=== PATIENT | female | born 1990 | race Caucasian/White ===

== ENCOUNTER 2017-05-15 06:50 | Day surgery (SDC) | payer OTHER ==
[~2017-05-15] VITALS: Ht 172.7 cm; Wt 154.2 kg
[~2017-05-15 06:50] MED LIST: ALBUTEROL SULF8.5 GM INH; AMOXICILLIN500 MG PO; BACLOFEN10 MG PO; CLINDAMYCIN HC300 MG PO; DICLOFENAC SODI75 MG PO; IBUPROFEN200 MG PO; IBUPROFEN600 MG PO; IMITREX50 MG PO; MONO-LINYAH1 EACH PO; NORCO 5-325 TA1 EACH PO; OMEPRAZOLE20 MG PO; ORTHO-CYCLEN1 EACH PO; PAROXETINE HCL20 MG PO; PERCOCET 5-3251 EACH PO; PREDNISONE20 MG PO; PRENATAL 19 TA1 EAC1 PO; PROMETHAZINE HC25 M1 PO; PROPRANOLOL HCL20 MG PO; PROTONIX40 MG PO; TRAMADOL HCL50 MG PO; ZITHROMAX250 MG PO; ZOFRAN ODT8 MG SL
[2017-05-15] MEDS ORDERED: IBUPROFEN600 MG PO (10:53)
[2017-05-15] MEDS ORDERED: OXYCODON-ACETA1 EAC2 PO (10:54)
--- NOTE | 2017-05-15 11:07 | NUR ---
05/15/17 1107 Alicia Núñez 1025 PT ARRIVED IN [place] ON 10L VIA MASK. PT O2 SAT 85%, TRIAGE SPECIALIST AT BEDSIDE AROUSING PT. PT ENCOURAGED TO DEEP BREATH AND COUGH. PT DROWSY. 1030 PT O2 SAT 92% WITH DEMINISHED BREATH SOUNDS. PT COUGHING OFF AND ON. PT REPORTS PAIN 5/10, EDUCATION GIVEN ON PAIN MEDICAITON AND BREATHING. 1037 PT ABLE TO FOLLOW COMMANDS WITH DEEP BREATHING AND COUGHING. O2 SAT 99%. 1040 PT O2 SAT CONTINUES TO DECREASE WHEN PT IS NOT STIMULATED AND REMONDED TO DEEP BREATH AND COUGH. PT MORE AWAKE AND OPENING EYES OFF AND ON. 1047 O2 SAT 100%. O2 DECREASED TO 8L VIA MASK. 1050 O2 DECREASED TO 6L. PT ABLE TO MAINTAIN SAT ABOVE 92% FOR 10 MINUTES. 1056 MD AT [facility]. O2 REMOVED. 1100 PT AWAKE AND TALKING. RN CONTINUES TO REMIND PT TO DEEP BREATH AND COUGH. O2 SAT WILL DECREASE TO 90% AND THEN INCREASE AFTER COUGHING AND DEEP BREATHING. PT ON RA.
--- NOTE | 2017-05-15 11:32 | NUR ---
CRACKERS, SOUP AND ICED WATER GIVEN. PATIENT REPLACING FACIAL PIERCING UPON HER IMMEDIATE RETURN TO DEPT. CALL LIGHT W/IN REACH.
--- NOTE | 2017-05-15 12:38 | NUR ---
PT UP TO BR W/RN STANDBY. PT VOIDS 100 ML CONCENTRATED, DARK YELLOW URINE AND AMBULATES BACK TO BED. PT DRESSES SELF AND TOLERATES THAT MOVEMENT WELL.
--- NOTE | 2017-05-15 13:34 | NUR ---
LE 1255: DC INSTRUCTIONS GIVEN AND PT VERBALIZES UNDERSTANDING. PT TRANSFERS SELF TO WC AND TO PERSONAL VEHICLE AND TOLERATES THOSE TRANSFERS WELL.
--- NOTE | 2017-05-17 08:59 | OR ---
[facility] [address] [place], [place] [address] Signed DATE OF OPERATION: 05/15/2017 SURGEON: Kathi Leal MD PREOPERATIVE DIAGNOSES: 1. Inverted nipple and subareolar mass, presumed history of subareolar breast abscess. 2. Morbid obesity (340 pounds, BMI 53.3). POSTOPERATIVE DIAGNOSES: 1. Inverted nipple and subareolar mass, presumed history of subareolar breast abscess. 2. Morbid obesity (340 pounds, BMI 53.3). PROCEDURE: Excision of subareolar breast tissue with plastic closure. ANESTHESIA: General endotracheal, Mack Herzog AGRICULTURAL SCIENTIST and local with 10 mL of 0.25% Marcaine with epinephrine. INDICATION: This morbidly obese, BMI 53.3, white woman is a patient of Dr. Lowery. She has 2 children and daughter who is 2 and a son who is 6, and was said to have a right subareolar breast abscess. To my knowledge, she never had erythema or purulence and has had some clear discharge from the right breast over time. She has had no bloody drainage. She has had pain and fullness in the subareolar area. She was unable to breastfeed due to inability to latch related to inverted nipple. Both left and right sides do show inverted nipple however. An ultrasound was performed showing some fluid and a masslike lesion and she underwent image guided biopsy by Dr. Abdalla showing only fibrosis, but no sign of malignancy. She has no family history of breast cancer that she is aware of. She does smoke cigarettes, now is cutting down on that at this time. She was admitted at this time to undergo right subareolar breast mass and soft tissue excision for both diagnosis and treatment of her problem. She understands the risks of bleeding, infection, cosmetic deformity, inability to breastfeed in the future in that breast, and other unforeseen complications including possible need for additional treatment, should malignancy be found, and wishes to proceed. FINDINGS: The inverted nipple was quite obvious in no doubt related to dense scarring of breast tissue beneath the nipple. Wide excision was undertaken. The breast excision size was 9 cm in diameter and 6 cm in depth. The lesion once excised was bivalved and had dense Electronically Signed By: KATHI LEAL MD 05/17/17 0859 PATIENT NAME: FRANCESCA GIBBS OPERATIVE REPORT DATE OF : [birth year] REPORT #: [id number] PHYSICIAN: KATHI LEAL MD PCP: DANNY LOWERY MD REPORT IS CONFIDENTIAL AND NOT TO BE RELEASED WITHOUT AUTHORIZATION [facility] [address] [place], [place] [address] Signed scarring, but no fluid or anything to suggest active abscess. Final pathology is pending. Notably, the nipple was made to be in a more natural position without inversion by conclusion and breast parenchymal reapproximation allowed for excellent cosmesis. DESCRIPTION OF PROCEDURE: The patient was brought to the operating room, given a general endotracheal anesthetic. Preoperative antibiotic Ancef was given. Sequential compression device stockings were used and heparin subcutaneously administered. The right breast was prepared with a chlorhexidine solution and draped sterilely. The inferior margin of the areolar area was marked and an incision was made along the areolar margin. Dissection was carried through the dermis with electrocautery. Flaps were elevated including beneath the nipple itself or dense tissue was noted. The nipple proper was freed from the underlying mass and wide resection was undertaken primarily with electrocautery maintaining a clinically negative margin around the dense mass, which was a few centimeters below the areolar dermis itself. Wide excision was undertaken and ultimately excising the mass entirely with clinically negative margins. Photographs were taken throughout. The lesion was bivalved to see the dense mass in the center portion, which did show scarring and no evidence of fluid or abscess fluid at this time. Irrigation was undertaken in the wound. The defect was enough that a sunken areola would be expected. On that basis, parenchymal reapproximation was undertaken with interrupted 2-0 Vicryl suture. There were deep dermal layer similarly approximating the skin closed with running subcuticular 3-0 Vicryl. Steri-Strips were applied as was Mepilex, silver sponge dressing. Care was taken to free dermal scarring to allow for eversion of the nipple in a more natural way. A Mepilex silver sponge dressing was applied after Steri-Strips were applied and 10 mL of 0.25% Marcaine with epinephrine had been injected for postoperative analgesic effect. An OpSite was applied. The patient was ultimately extubated and transferred to recovery room in good condition having suffered no complication. Sponge, needle, and instrument counts reported as correct x3. MD NICOLASA Matos/ARSHL /[id number] Electronically Signed By: KATHI LEAL MD 05/17/17 0859 PATIENT NAME: FRANCESCA GIBBS OPERATIVE REPORT DATE OF : [birth year] REPORT #: [id number] PHYSICIAN: KATHI LEAL MD PCP: DANNY LOWERY MD REPORT IS CONFIDENTIAL AND NOT TO BE RELEASED WITHOUT AUTHORIZATION [facility] [address] [facility] [place], [place] [address] Signed cc: Dr. Lianne Lowery MD Copies: DANNY LOWERY MD ~ Electronically Signed By: KATHI LEAL MD 05/17/17 0859 PATIENT NAME: FRANCESCA GIBBS OPERATIVE REPORT DATE OF : [birth year] REPORT #: [id number] PHYSICIAN: KATHI LEAL MD PCP: DANNY LOWERY MD REPORT IS CONFIDENTIAL AND NOT TO BE RELEASED WITHOUT AUTHORIZATION
== END 2017-05-15 13:02 | disposition home or self-care (01) ==
LOC: DS 06:50
PROVIDERS: Surgery
PROC: 0HBT0ZZ Excision of Right Breast, Open Approach (ICD-10-PCS; principal; 2017-05-15 08:30)
DX: N61.1 Abscess of the breast and nipple (principal); N64.1 Fat necrosis of breast; N60.31 Fibrosclerosis of right breast; N64.59 Other signs and symptoms in breast; F17.210 Nicotine dependence, cigarettes, uncomplicated; E66.01 Morbid (severe) obesity due to excess calories; J45.909 Unspecified asthma, uncomplicated; Z88.5 Allergy status to narcotic agent; Z68.43 Body mass index [BMI] 50.0-59.9, adult
CPT/HCPCS: 00404; 88305; J0330; J0690; J1644; J1885; J2250; J2405; J2704; J2710; J2765; J3010; J7120

== ENCOUNTER 2018-06-04 12:57 | Emergency (ER) | payer OTHER ==
[~2018-06-04] VITALS: Ht 172.7 cm; Wt 158.8 kg
[~2018-06-04 12:57] MED LIST changes: +BACTRIM DS TAB1 EACH PO; +HYDROCODON-ACE1 EA10 PO; +MAPAP325 MG PO; +MOTRIN IB200 MG PO; +OXYCODON-ACETA1 EAC2 PO
[2018-06-04] MEDS ORDERED: KEFLEX500 MG PO (14:40)
== END 2018-06-04 15:26 | disposition home or self-care (01) ==
LOC: ED 12:57
DX: N61.1 Abscess of the breast and nipple (principal); G43.909 Migraine, unspecified, not intractable, without status migrainosus; F17.200 Nicotine dependence, unspecified, uncomplicated; Z88.5 Allergy status to narcotic agent; Z88.8 Allergy status to other drugs, medicaments and biological substances
CPT/HCPCS: 84702; 99283-25; 99406

== ENCOUNTER 2020-03-05 17:51 | Inpatient (IN) | payer OTHER ==
--- NOTE | ~2020-03-05 | OR ---
[facility] [address] [place], [place] [address] Draft DATE OF OPERATION: 03/05/2020 SURGEON: Kat Franz MD [facility] PHYSICIAN: Dr. Bajwa. PREOPERATIVE DIAGNOSES: 31 and 3/7th week , non-reassuring status, prior section x2, morbid obesity, positive coronavirus disease. POSTOPERATIVE DIAGNOSES: 31 and 3/7th week , non-reassuring status, prior section x2, morbid obesity, positive coronavirus disease, delivered. PROCEDURE: Repeat section with low segment transverse uterine incision. ANESTHESIA: General ET. ESTIMATED BLOOD LOSS: 250 mL. DRAINS: Browne. INDICATIONS AND FINDINGS: The patient is a 29-year-old female, 4, para 1-1-1-2, who was admitted at 31 and 3/7th weeks when she called to complain of decreased movement over the day. The patient was on Sunday with a positive test on Sunday. She has a mild cough and has had intermittent fevers, but no significant other symptoms. When she arrived initially, heart tones were in the 170s with poor variability and D-cells, consistent with possible late, so no contractions really were picked up. Biophysical was done, which was 2/8. Because of her status, it was not felt possible to send the patient and baby in the unit to be transferred for delivery at the hospital with a NICU. It was felt that she needed to be delivered more expeditiously. Therefore, she underwent here with the team en route. She was taken the operating room where she was delivered of a little boy via lower segment transverse uterine incision with Apgars are still pending and a weight of 3 pounds 15 ounces. [facility] PATIENT NAME: FRANCESCA GIBBS OPERATIVE REPORT DATE OF : [birth year] REPORT #: [id number] PHYSICIAN: KAT FRANZ MD PCP: ELLIOTT NOGUEIRA REPORT IS CONFIDENTIAL AND NOT TO BE RELEASED WITHOUT AUTHORIZATION [facility] [address] [place], [place] [address] Draft position. On entering the uterus, there was minimal bleeding. The placenta really had no bleeding at all associated with that. The uterus, tubes, and ovaries were otherwise normal. DESCRIPTION OF PROCEDURE: The patient was prepped and draped in the supine position. A Pfannenstiel skin incision was made and carried down through the fascia. The incision was extended laterally. The inferior and superior fascial flaps were then created. The muscles were bluntly divided and the peritoneum entered sharply and the incision extended superiorly and inferiorly. The Neymar retractor was then placed. The uterine incision was made at the upper aspect of the peritoneal reflection. The baby was delivered with above findings and handed off to the pediatric staff in attendance. The placenta was essentially delivered itself through the incision. There did not appear to really be much blood in the placenta. The fluid was clear at delivery, however. The edges of the incision were identified and the uterus was closed in 2 layers using 0 Monocryl. The first layer was a running locking stitch and second was a vertical imbricating stitch. An additional [id number] was required in the mid section for control of bleeding. The abdomen was then copiously irrigated and inspected and preparations made for closure. The retractor removed and the peritoneal edges identified. An ACell graft was laid over the lower segment to aid in healing. The peritoneum was then closed with a running suture of 3-0 Vicryl. The muscles came together nicely without any suturing. Bleeding points were controlled with cautery and a [id number]-[id number] was required on the vessel in the right rectus muscle. This was done using 0 Vicryl. Following this, the area was irrigated and hemostasis assured. ACell powder was sprinkled over the muscles to aid in healing. The fascia was then closed from each angle to the midline with a running suture of 0 Vicryl. The subcu tissue was irrigated and inspected and bleeding points controlled with cautery. ACell powder as well as Karel was placed in the subcu space to hopefully help avoid subcu hematoma. The deep space was closed with interrupted sutures of 3-0 Vicryl. The skin was closed with alla. All sponge and needle counts were correct. She tolerated the procedure well and was taken to the recovery room in good condition. Kat Franz MD PJW/MODL /[id number] PATIENT NAME: FRANCESCA GIBBS OPERATIVE REPORT DATE OF : [birth year] REPORT #: [id number] PHYSICIAN: KAT FRANZ MD PCP: ELLIOTT NOGUEIRA REPORT IS CONFIDENTIAL AND NOT TO BE RELEASED WITHOUT AUTHORIZATION [address] [address] Draft Copies: ~ PATIENT NAME: FRANCESCA GIBBS OPERATIVE REPORT DATE OF : [birth year] REPORT #: [id number] PHYSICIAN: KAT FRANZ MD PCP: ELLIOTT NOGUEIRA REPORT IS CONFIDENTIAL AND NOT TO BE RELEASED WITHOUT AUTHORIZATION
[~2020-03-05 17:51] MED LIST changes: +KEFLEX500 MG PO
--- NOTE | 2020-03-06 00:51 | NUR ---
03/06/20 Candi1 Karen Up 2155 INTO [facility] RM 101, PATIENT APPEARS TO BE RESTLESS AND AGITATED, CRYING. PATIENT SITTING UP IN BED. HERMILO GARZA AT BEDSIDE ENCOURAGING PATIENT TO DEEP BREATHS. SIMPLE MASK ON AND PATIENT RECIEVING 6L, PATIENT ABLE TO TAKE DEEP BREATHS. DRESSING TO SITE C/D/I. HERMILO GARZA ADMINISTERED PAIN MEDICAITON 50 BELLO OF FENTANYL IV AND 0.5 MG DILAUDID IV. UNKOWN WHERE FUNDAL IS LOCATED, MASSAGED DEEP ALL AROUND IN AREA, UNABLE TO LOCATE. SMALL AMOUNT OF DRAINAGE WITH MASSAGE. 2204 XRAY INTO ROOM TO TAKE PORTABLE CHEST XRAY. PATIENT CONTINUES TO APPEAR AGITATED, CRYING. FUNDAL CHECK NOT DONE AT THIS TIME SECONDARY TO IMAGING. 2209 DEEP FUNDAL CHECK AND MASSAGE TO ABDOMEN. CONTINUE TO BE UNABLE TO LOCATE FUNUS SECONDARY TO OBESITY. GILSON UNABLE TO LOCATE FUNDUS, CONTINUED TO MASSAGE ABDOMEN. DRESSING C/D/I TO INSCISION. SAMLL AMOUNT OF DRAINAGE ON PRIYANK PAD. IV INFUSING WELL. SECOND BAG OF PIT DONE, BAG OF LR HANGING AND INFUSING WELL TO 20 G IV TO RIGHT UPPER BRACHIAL.
--- NOTE | 2020-03-06 03:44 | PR ---
[facility] [address] [facility] [place], [place] [address] Signed PP Progress Notes Datetime Report Generated by MELIDA: 03/06/2020 03:43 SUBJECTIVE: [id number] Pain Comments: Painful with intermittent cramping Nausea/Vomiting: Denies Vital Signs: [id number] Vital Signs: Reviewed; Within Normal Limits Cardiovascular: Not Done Respiratory: Not Done Abdomen/Uterus: Normal Lochia: Abnormal Vulva/Perineum: Normal Breasts: Not Done CVA Tenderness: Not Done Extremities: Not Done Incision: Normal Progress: Not Applicable Exam Comments: Fundus is firm @ U-2. Vag exam done and cervix is closed and cavity could not be evaluated H/H 11.2/32.7, plat 70k H/H 14.1/41.5, plat 67k before surgery PT/PTT normal Fibrinogen 148 Tot blood loss including surgery = 878 cc IMPRESSION/PLAN/PROCEDURES: [id number] Other Impression: Continued bleeding Other Plans: see below Progress Notes: She has been receiving IV pit and has also received po Cytotec 800 mcg (approx 0030) as well as Methergine 0.2 mg IM (0230). The uterus is firm but she will develop increased cramping and then pass some small clots with blood. I suspect there is a clot within the uterus which is keeping it from ceferino sufficiently to allow her blood loss to decrease. A D_C may allow the uterus to be fully evacuated and I think this will be needed if her bleeding does not decrease over this next hr. Her fibrinogen and platelets are low though the platelet count is stable and her other coag times are normal so far. She is not having bleeding from other injection sites and I do not think she is in DIC but this will be a risk with continued bleeding. *Electronically Signed* 03/06/20342 KAT FRANZ MD PATIENT NAME: MERCYYazanFRANCESCAMARTÍNEZ JULINA PROGRESS NOTE DATE OF : 90 PHYSICIAN: KAT FRANZ MD RPT #: [id number] REPORT IS CONFIDENTIAL AND NOT TO BE RELEASED WITHOUT AUTHORIZATION [facility] [address] [place] [address] Signed Will watch over this next hr and if necessary will proceed with D_C with transfusion of PRBCs, FFP, and cryo. Her UO is adequate but still very concentrated. Will give fluid bolus now. Signing Physician: Kat Franz MD Copies: ~ *Electronically Signed* 03/06/20342 KAT FRANZ MD PATIENT NAME: FRANCESCA GIBBS PROGRESS NOTE DATE OF : 90 PHYSICIAN: KAT FRANZ MD RPT #: [id number] REPORT IS CONFIDENTIAL AND NOT TO BE RELEASED WITHOUT AUTHORIZATION
--- NOTE | 2020-03-06 09:03 | PR ---
[facility] [address] [facility] [place] [address] Signed PP Progress Notes Datetime Report Generated by MLEIDA: 03/06/2020 09:03 SUBJECTIVE: [id number] Pain: Within Normal Limits Pain Comments: Painful with intermittent cramping Nausea/Vomiting: Denies Vital Signs: [id number] Vital Signs: Reviewed; Within Normal Limits Notable Details: Poor UO Cardiovascular: Normal Respiratory: Normal Abdomen/Uterus: Abnormal Lochia: Normal Vulva/Perineum: Not Done Breasts: Not Done CVA Tenderness: Not Done Extremities: Normal Incision: Normal Progress: Not Applicable Exam Comments: Abdomen with active BS. Fundus firm, tender @ U-1. Lochia steadily decreased since 0500 IMPRESSION/PLAN/PROCEDURES: [id number] Impression: Normal Progression Other Impression: Poor UO, stable blood loss, hypokalemia Other Plans: Fluid bolus, add K+, ambulate Progress Notes: Bleeding much improved. There is no evidence of DIC or continued bleeding. Her labs are stable. She looks good but UO is quite low. There is no evidence of edema so I suspect she is still fluid short. Will increase her IV fluids and begin ambulation. Hypokalemia--will supplement in IV fluids. Will repeat labs this afternoon. Will increase ambulation and allow regular diet as she is very hungry. Signing Physician: Kat Franz MD Copies: *Electronically Signed* 03/06/20 0903 KAT FRANZ MD PATIENT NAME: FRANCESCA GIBBS PROGRESS NOTE DATE OF : 90 PHYSICIAN: KAT FRANZ MD RPT #: [id number] REPORT IS CONFIDENTIAL AND NOT TO BE RELEASED WITHOUT AUTHORIZATION [address] [address] Signed ~ *Electronically Signed* 03/06/20 0903 KAT FRANZ MD PATIENT NAME: FRANCESCA GIBBS PROGRESS NOTE DATE OF : 90 PHYSICIAN: KAT FRANZ MD RPT #: [id number] REPORT IS CONFIDENTIAL AND NOT TO BE RELEASED WITHOUT AUTHORIZATION
--- NOTE | 2020-03-07 09:23 | PR ---
[facility] [address] [facility] [place] [place] [address] Signed PP Progress Notes Datetime Report Generated by MELIDA: 03/07/2020 09:23 SUBJECTIVE: [id number] Pain: Within Normal Limits Pain Comments: Itching resolved with Benadryl Nausea/Vomiting: Denies Nausea/Vomiting Comments: UO good Flatus: No Vital Signs: [id number] Vital Signs: Reviewed Notable Details: febrile last pm EXAM: Ongoing Cardiovascular: Normal Respiratory: Normal Abdomen/Uterus: Normal Lochia: Normal Vulva/Perineum: Normal Breasts: Not Done CVA Tenderness: Not Done Extremities: Normal Incision: Abnormal Progress: Not Applicable Exam Comments: Abdomen with active BS. Fundus firm, at U-4. Incision intact but with quite a bit of bruising superiorly. H/H 9.6/27.8, WBC 7.7, plat 97k Na 137, K 3.3 IMPRESSION/PLAN/PROCEDURES: [id number] Impression: Normal Progression Other Impression: COVID 19, oliguria resolved, hypokalemia Other Plans: Increase ambulation Progress Notes: Overall much improved. Oliguria--Her UO is doing well and I suspect she was significantly more dehydrated than suspected. Thrombocytopenia--improving. Hypokalemia--continues. Will begin oral supplementation. COVID 19--suspect cause of last night's increased temp as no other source identified. Anemia--tolerating ambulation well. Itching--suspect related to oxycodone. Will switch to Dilaudid. I think it likely she will be able to be discharged home tomorrow if continues to do *Electronically Signed* 03/07/20922 KAT FRANZ MD PATIENT NAME: FRANCESCA GIBBS PROGRESS NOTE DATE OF : 90 PHYSICIAN: KAT FRANZ MD RPT #: [id number] REPORT IS CONFIDENTIAL AND NOT TO BE RELEASED WITHOUT AUTHORIZATION [address] [address] Signed well. Signing Physician: Kat Franz MD Copies: ~ *Electronically Signed* 03/07/20922 KAT FRANZ MD PATIENT NAME: FRANCESCA GIBBS PROGRESS NOTE DATE OF : 90 PHYSICIAN: KAT FRANZ MD RPT #: [id number] REPORT IS CONFIDENTIAL AND NOT TO BE RELEASED WITHOUT AUTHORIZATION
== END 2020-03-07 23:40 | disposition home or self-care (01) | DRG 786 ==
LOC: FBCO 17:51 → FBC 19:26
PROVIDERS: ADMIT Obstetrics & Gynecology; ATTEND Obstetrics & Gynecology
PROC: 10D00Z1 Extraction of Products of Conception, Low, Open Approach (ICD-10-PCS; principal; 2020-03-05 20:40)
DX: O34.211 Maternal care for low transverse scar from previous cesarean delivery (principal); U07.1 COVID-19; O98.52 Other viral diseases complicating childbirth; O72.1 Other immediate postpartum hemorrhage; N85.8 Other specified noninflammatory disorders of uterus; Z3A.31 31 weeks gestation of pregnancy; Z37.0 Single live birth; O76 Abnormality in fetal heart rate and rhythm complicating labor and delivery; O99.214 Obesity complicating childbirth; E66.01 Morbid (severe) obesity due to excess calories; O32.2XX0 Maternal care for transverse and oblique lie, not applicable or unspecified; O99.334 Smoking (tobacco) complicating childbirth; F17.210 Nicotine dependence, cigarettes, uncomplicated; O90.81 Anemia of the puerperium; D64.9 Anemia, unspecified; O99.285 Endocrine, nutritional and metabolic diseases complicating the puerperium; E87.6 Hypokalemia; E86.0 Dehydration; O99.73 Diseases of the skin and subcutaneous tissue complicating the puerperium; L29.9 Pruritus, unspecified; T40.2X5A Adverse effect of other opioids, initial encounter; O72.3 Postpartum coagulation defects; D69.6 Thrombocytopenia, unspecified; Y92.239 Unspecified place in hospital as the place of occurrence of the external cause; Z88.5 Allergy status to narcotic agent; Z88.8 Allergy status to other drugs, medicaments and biological substances
CPT/HCPCS: 01961; 71045; 76818; 80048; 80053; 82803; 83605; 83735; 85025; 85384; 85610; 85730; 86850; 86900; 86901; 86920; A9270; J0171; J0690; J1170; J1650; J1885; J2001; J2210; J2250; J2405; J2590; J2704; J3010; J3480; J7040; J7120; J7121

== ENCOUNTER 2020-04-28 16:07 | Emergency (ER) | payer OTHER ==
[~2020-04-28] VITALS: Ht 170.2 cm; Wt 149.7 kg
[2020-04-28] MEDS ORDERED: IRON325 M1 PO (17:42)
== END 2020-04-28 22:46 | disposition home or self-care (01) ==
LOC: ED 16:07
DX: N61.1 Abscess of the breast and nipple (principal); G43.909 Migraine, unspecified, not intractable, without status migrainosus; E66.9 Obesity, unspecified; F17.200 Nicotine dependence, unspecified, uncomplicated; Z88.8 Allergy status to other drugs, medicaments and biological substances; Z88.5 Allergy status to narcotic agent; Z79.899 Other long term (current) drug therapy
CPT/HCPCS: 76642; 85025; 96365; 99283-25

== ENCOUNTER 2020-07-07 09:11 | Emergency (ER) | payer OTHER ==
[~2020-07-07] VITALS: Ht 170.2 cm; Wt 149.7 kg
[~2020-07-07 09:11] MED LIST changes: +ASHLYNA 0.15-01 EACH PO; +IBUPROFEN800 MG PO; +IRON325 M1 PO
[2020-07-07] MEDS ORDERED: HAIR, SKIN AND1 EAC2 PO (09:47)
[2020-07-07] MEDS ORDERED: HYDROCODON-ACE1 EA10 PO (13:14)
[2020-07-07] MEDS ORDERED: ZOFRAN4 MG PO (13:14)
[2020-07-07] MEDS ORDERED: CEPHALEXIN500 M1 PO (13:14)
== END 2020-07-07 13:23 | disposition home or self-care (01) ==
LOC: ED 09:11
DX: N61.1 Abscess of the breast and nipple (principal); E66.9 Obesity, unspecified; G43.909 Migraine, unspecified, not intractable, without status migrainosus; F17.200 Nicotine dependence, unspecified, uncomplicated; Z20.822 Contact with and (suspected) exposure to COVID-19; Z88.5 Allergy status to narcotic agent; Z88.8 Allergy status to other drugs, medicaments and biological substances; Z79.899 Other long term (current) drug therapy
CPT/HCPCS: 76642; 80053; 83605; 85025; 87040; 96374; 99283-25; C9803; J0690; J7030; U0003

== ENCOUNTER 2020-07-09 09:09 | Day surgery (SDC) | payer OTHER ==
[~2020-07-09] VITALS: Ht 170.2 cm; Wt 153.6 kg
[~2020-07-09 09:09] MED LIST changes: +CEPHALEXIN500 M1 PO; +HAIR, SKIN AND1 EAC2 PO; +ZOFRAN4 MG PO
--- NOTE | 2020-07-09 13:05 | NUR ---
07/09/20 1305 Yamilet Chris 1301 PATIENT ARRIVES TO PACU UNRESPONSIVE TO PAIN. ORAL AIRWAY IN PLACE. RESP DECREASED @7, SPECIAL SKILLS OFFICER AWARE. UNLABORED, MASK AT 10 LITERS.
--- NOTE | 2020-07-09 13:53 | NUR ---
PATIENT BACK TO ROOOM, ALERT AND ORIENTED. DRESSING TO RIGHT BREAST C/D/I. PATIENT ON PHONE TALKING. PROVIDED WATER AND SNACKS. NO OTHER NEEDS AT THIS TIME.
--- NOTE | 2020-07-09 15:28 | NUR ---
PATIENT AMBULATED TO FRONT ENTRANCE WITH STAFF, STEADY ON FEET. VERBALIZES UNDERSTANDING OF DISCHARGE TEACHING AND DENIES PAIN OR NAUSEA.
--- NOTE | 2020-07-11 08:14 | OR ---
[facility] [address], [place] [address] Signed DATE OF OPERATION: 07/09/2020 SURGEON: Jj Little MD PREOPERATIVE DIAGNOSIS: Recurrent right breast abscess. POSTOPERATIVE DIAGNOSIS: Recurrent right breast abscess. PROCEDURES: 1. Incision and drainage of right breast abscess. 2. Deep wound cultures. ESTIMATED BLOOD LOSS: None. INDICATIONS: Wilma is a 30-year-old female with a body mass index of 52. She had trouble now with right subareolar recurring breast abscess and infection. She went to Dr. Khan and had it incised and drained and then had a 2nd surgery and quite a bit of the tissue removed to help with that infection. Unfortunately, it keeps recurring. It has been cultured before grew out routine Staph aureus. It has responded nicely to Keflex in the past. She went back to the ER once again after I incised and drained it and we packed it with full strength Dakin's solution. However, I am not sure it was packed as well as long as it should have been. In the emergency room, she clearly had erythema, induration and pain and so she was once again started on the Keflex. I asked to see her in my office the very next morning. In the morning after that, we brought her down here to the operating room, incised and drained the breast. She told me early this morning it broke through the skin at the incision site and relieved the pressure. She has also started the Keflex. In the office, I met with Wilma once again. We examined that area with the help of our medical front desk coordinator. I explained to Wilma I think once again, we are going to open up the I and D site and clean that out and examine that area thoroughly. We hate to cut when it is acutely infected. Once again, we are going to use full-strength Dakin solution for a week to see if we cannot sterilize the wound and we will use mupirocin ointment on the skin along with the Keflex and see if we can get this to heal in secondarily. We may need to keep her on antibiotics alf and we are going to consult our regional Infectious Disease specialist to see if he thinks that would help. In the meantime, she presents today for the surgery. She is very aware of this surgery having gone through it now three times previously. She understands there Electronically Signed By: JJ LITTLE MD 07/11/20 0814 PATIENT NAME: WILMA WEST OPERATIVE REPORT DATE OF : [birth year] REPORT #: [id number] PHYSICIAN: JJ LITTLE MD PCP: ANGELA GREEN MD REPORT IS CONFIDENTIAL AND NOT TO BE RELEASED WITHOUT AUTHORIZATION [address] [address] Signed is risk including, but not limited to bleeding, infection, scarring, change in contour of the skin as well as possible need for additional surgeries and/or treatments. She had expressed understanding and wished to proceed. DESCRIPTION OF PROCEDURE: I met with Wilma in our preop area along with our nurse. We all agreed on the right breast. We marked that appropriately. After this, Wilma was taken to the operating room and placed in the supine position under general LMA anesthesia. She was already on Keflex by mouth and we added IV clindamycin. She was given preoperative subcutaneous heparin and SCDs were utilized. She was prepped and draped in the usual sterile fashion. We simply opened up the small circumareolar incision from about the 3 to 5 o'clock position on the right breast. We took our deep wound cultures. The wound was irrigated and suctioned out until clear. We examined the wound and it really is only about a cm or so wide and about 3 cm deep. It does turn head toward the sternal about a cm or so. I really think this should heal in secondarily. I think she is going to need some prolonged antibiotics and the Dakin's solution along with some mupirocin ointment for the skin. Once we debrided all the loose tissue and examined the area, we injected local anesthetic. We then packed the wound with Dakin's solution and covered it with dry gauze and tape. After this, Wilma was awakened from her anesthesia, extubated in the OR, and taken to recovery room in stable condition. Jj Little MD ALB/MODL /[id number] cc: DO Angela Lu MD Andrew L Bower, MD Copies: RICK JONES DO Electronically Signed By: JJ LITTLE MD 07/11/20 0814 PATIENT NAME: WILMA WEST OPERATIVE REPORT DATE OF : [birth year] REPORT #: [id number] PHYSICIAN: JJ LITTLE MD PCP: ANGELA GREEN MD REPORT IS CONFIDENTIAL AND NOT TO BE RELEASED WITHOUT AUTHORIZATION [facility] [address] [place], [place] [address] Signed JJ LITTLE MD ~ Electronically Signed By: JJ LITTLE MD 07/11/20813 PATIENT NAME: WILMA WEST OPERATIVE REPORT DATE OF : [birth year] REPORT #: [id number] PHYSICIAN: JJ LITTLE MD PCP: ANGELA GREEN MD REPORT IS CONFIDENTIAL AND NOT TO BE RELEASED WITHOUT AUTHORIZATION
== END 2020-07-09 15:10 | disposition home or self-care (01) ==
LOC: OPS 09:09 → DS 09:12 → OPS 12:15
PROVIDERS: ATTEND Colon & Rectal Surgery
PROC: 0H9T0ZZ Drainage of Right Breast, Open Approach (ICD-10-PCS; principal; 2020-07-09 12:15)
DX: N61.1 Abscess of the breast and nipple (principal)
CPT/HCPCS: 00404; 84703; 87070; 87075; 87205; J1100; J1644; J1885; J2001; J2250; J2405; J2704; J3010; J3490; J7121

== ENCOUNTER 2022-01-23 15:46 | Inpatient (IN) | payer OTHER ==
[~2022-01-23] VITALS: Ht 172.7 cm; Wt 175.1 kg
--- NOTE | ~2022-01-23 | OR ---
[facility] [address] [place], [place] [address] Draft DATE OF OPERATION: 01/23/2022 SURGEON: Kat Franz MD SURGEON CHIEF: Marika Jama DO. PREOPERATIVE DIAGNOSES: 37+ week , premature rupture of membranes, previous section x3, undesired fertility, breech presentation, morbid obesity, gestational diabetes. POSTOPERATIVE DIAGNOSES: 37+ week , premature rupture of membranes, previous section x3, undesired fertility, breech presentation, morbid obesity, gestational diabetes, delivered. PROCEDURES: Repeat section with low segment transverse uterine incision with right salpingectomy and left partial salpingectomy. ANESTHESIA: Spinal with IV sedation. ESTIMATED BLOOD LOSS: 600 mL. DRAINS: Browne catheter. INDICATIONS AND FINDINGS: The patient is a 31-year-old female, 5, para 1-2-1-2 who was admitted at 37 and 2/7th weeks and after spontaneous rupture of membranes at home. Her has been complicated by multiple issues including prior , previous section x3, morbid obesity, and gestational diabetes. At the time of surgery, she was delivered of a little girl via lower segment transverse uterine incision from the rosemary breech position with Apgars of 8 and 9 and weight of 7 pounds 15 ounces. The uterus had some ballooning at the right cornual area. The uterus otherwise appeared normal as did the placenta. She had some filmy adhesions bilaterally around the tubes and ovaries consistent with prior infection. The ovaries and tubes otherwise were normal. She had multiple significant omental adhesions as well and these did require division. PATIENT NAME: FRANCESCA WEST OPERATIVE REPORT DATE OF : [birth year] REPORT #: [id number] PHYSICIAN: KAT FRANZ MD PCP: NURIS GREEN MD REPORT IS CONFIDENTIAL AND NOT TO BE RELEASED WITHOUT AUTHORIZATION [facility] [address] [place], [place] [address] Draft PROCEDURE IN DETAIL: The patient was prepped and draped in the supine position. Pannus elevators were used because of her morbid obesity. The vision was made over the prior scar and the scar excised sharply. The incision was carried down to the fascia. The fascial incision was extended laterally. The inferior and superior flaps were then created. The peritoneum was opened sharply at the superior aspect and careful dissection was done to separate the muscles and to protect the bladder. Following this, the peritoneum was more with blunt force. The Neymar retractor was then placed. The uterine incision was made near the lower aspect and extended bluntly. The baby was delivered with the above findings and handed off to the pediatric staff in attendance. The cord blood was obtained. The placenta was removed manually. The uterus was explored with a lap tape assuring no remaining fragments. As noted before, there was some thinning of the uterus at the upper right aspect. The uterine incision was identified and was closed in 2 layers using 0 Monocryl. The first layer was a running locking stitch and the second was a vertical imbricating stitch. Good hemostasis was noted. Pressure was applied to the incision area and the tubal ligation was begun. The patient's right tube was grasped with Ollie clamps and clear areas in the mesosalpinx were sharply dissected and the tube serially excised with free ties of 2-0 chromic. The tube was removed in pieces and the fimbria was also removed in the same manner. The filmy adhesions were also divided with the cautery. Following this, attention was directed to the patient's left tube. The filmy adhesions were divided sharply. The tube was grasped with Ollie clamps. The initial portion of the tube did have some free area in the mesosalpinx and this allowed for division and removal of the half of the tube from the cornu to the mid section. However, the fimbriated end was very, very close to the large vessels in the broad ligament and it was felt prudent to not try to remove this area because of the potential for significant bleeding. Thus only a partial salpingectomy was done on the patient's left. Good hemostasis was noted however. Following this, the uterus was replaced back into the abdomen. The incision was reinspected and good hemostasis was again noted. The abdomen was irrigated and again good hemostasis was noted. The retractor was removed. The peritoneum was identified, but at this point, it was noted that there was significant adhesions superiorly and on the patient's left side, which would interfere with closure. Because of this, the omental adhesions were divided with free ties of 0 chromic. The uppermost aspect however was not completely as it was felt that the peritoneum could be closed above this and the adhesions were quite extensive. The peritoneum was then closed with a running suture of 3-0 Vicryl. The muscles essentially were reapproximated at this point as they had been pretty densely scarred and no attempt was made to reapproximate these further. The abdomen was irrigated and bleeding points were controlled with cautery. The fascia was then closed from each angle to the midline with a running suture of 0 PDS. PDS was chosen because of her morbid obesity. The subcu space was irrigated and bleeding points were controlled with cautery. The deep space was closed with interrupted sutures of 3-0 PATIENT NAME: FRANCESCA WEST OPERATIVE REPORT DATE OF : [birth year] REPORT #: [id number] PHYSICIAN: KAT FRANZ MD PCP: NURIS GREEN MD REPORT IS CONFIDENTIAL AND NOT TO BE RELEASED WITHOUT AUTHORIZATION [address], [place] [address] Draft Vicryl. The skin was closed with alla. All sponge and needle counts were correct. She tolerated the procedure well and was taken to the recovery room in good condition. Kat Franz MD PJW/ARSHL /[id number] cc: Marika Jama DO Copies: MARIKA JAMA DO ~ PATIENT NAME: FRANCESCA WEST OPERATIVE REPORT DATE OF : [birth year] REPORT #: [id number] PHYSICIAN: KAT FRANZ MD PCP: NURIS GREEN MD REPORT IS CONFIDENTIAL AND NOT TO BE RELEASED WITHOUT AUTHORIZATION
--- NOTE | 2022-01-23 17:00 | NUR ---
COVID SWAB COLLECTED SENT TO THE LAB
--- NOTE | 2022-01-23 20:42 | NUR ---
[facility]23[facility]222041 [facility] 1948 [facility] IN PACU WIDE AWAKE C/O ABOUT BP CUFF TO TIGHT. REMINDED PT BP NEED TAKEN EVERY 5 MINUTES WHILE IN PACU. PT EXPRESSED UNDERSTANDING. 1954 C/O ABD PAIN ONLY DURING FUNDAL MASSAGE. FBC RN IN ROOM WITH BABY. AUTOMOTIVE MACHINIST AT BEDSIDE TALKING TO PARENTS ABOUT BABY NEEDING AN IV AND GOING TO NURSERY FOR AWHILE. MOM HELD BABY FOR 1 MINUTE, THEN FBC RN AND BABY HEADED TO NURSERY. 2004 C/O FEELING HUNGRY. ICE CHIPS GIVEN. PT ON PHONE ORDERING SERBIAN TAKE OUT. REMINDED PT SHE CAN'T EAT RIGHT AWAY. 2009 AND PT'S MOTHER LEFT TO GO DUST BOX WORKER TAKE OUT. 2019 REPORT GIVEN TO FBC RN'S. BED PLUGGED IN AND MOM GIVEN UPDATE ON BABY.
--- NOTE | 2022-01-24 07:48 | PR ---
[facility] [address] [place], [place] [address] Signed PP Progress Notes Datetime Report Generated by CPN: 01/24/2022 07:48 SUBJECTIVE: [id number] Pain: Within Normal Limits Nausea/Vomiting: Denies Flatus: No Vital Signs: [id number] Vital Signs: Reviewed Notable Details: all normal except UO borderline EXAM: Ongoing Cardiovascular: Normal Respiratory: Normal Abdomen/Uterus: Abnormal Lochia: Normal Vulva/Perineum: Not Done Breasts: Not Done CVA Tenderness: Not Done Extremities: Normal Incision: Abnormal Progress: Abnormal Exam Comments: Abdomen with active BS. Fundus firm, sl tender @ U-1. Incision with some oozing on the dressing H/H 12.3/37, WBC 20.7, plat 289k IMPRESSION/PLAN/PROCEDURES: [id number] Impression: Normal Progression Other Impression: leukocytosis Other Plans: ambulate, shower Procedures: None Progress Notes: Overall doing well though UO sl decreased which I suspect is related to her Toradol. Her H/H are good though she has significant leukocytosis. This may be related to her surgery but will repeat to assure this continues a downward trend. Signing Physician: Kat Franz MD Copies: ~ *Electronically Signed* 01/24/22 0748 KAT FRANZ MD PATIENT NAME: FRANCESCA WEST PROGRESS NOTE DATE OF : [birth year] PHYSICIAN: KAT FRANZ MD RPT #: [id number] REPORT IS CONFIDENTIAL AND NOT TO BE RELEASED WITHOUT AUTHORIZATION
--- NOTE | 2022-01-25 08:50 | PR ---
[facility] [address] [facility] [place], [place] [address] Signed PP Progress Notes Datetime Report Generated by CPN: 01/25/2022 08:50 SUBJECTIVE: [id number] Pain: Within Normal Limits Nausea/Vomiting: Denies Flatus: Yes Vital Signs: [id number] Vital Signs: Reviewed Notable Details: mild HTN EXAM: Met Cardiovascular: Normal Respiratory: Normal Abdomen/Uterus: Abnormal Lochia: Normal Vulva/Perineum: Not Done Breasts: Not Done CVA Tenderness: Not Done Extremities: Abnormal Incision: Normal Progress: Abnormal Exam Comments: Abdomen with active BS. Fundus firm, NT @ U-1. H/H 11/33.4, WBC 10.8, plat 229k CMP Normal IMPRESSION/PLAN/PROCEDURES: [id number] Impression: Normal Progression Other Impression: leukocytosis Other Plans: ambulate, shower Procedures: None Progress Notes: Doing well. She desires D/C and this seems reasonable. Signing Physician: Kat Franz MD Copies: ~ *Electronically Signed* 01/25/22 0850 KAT FRANZ MD PATIENT NAME: FRANCESCA WEST IESHA PROGRESS NOTE DATE OF : [birth year] PHYSICIAN: KAT FRANZ MD RPT #: [id number] REPORT IS CONFIDENTIAL AND NOT TO BE RELEASED WITHOUT AUTHORIZATION
--- NOTE | 2022-01-27 13:06 | PATH ---
[facility] [address] [facility] [place] [place] [address] Signed SPECIMEN(S): A FALLOPIAN TUBES, BILATERAL SPECIMEN SOURCE: A. FALLOPIAN TUBES, BILATERAL CLINICAL HISTORY: . FINAL PATHOLOGIC DIAGNOSIS: Bilateral fallopian tubes: - Two segments of benign oviduct. J[facility]:C2NR MICROSCOPIC EXAMINATION: Histologic sections of all submitted blocks are examined by light microscopy. These findings, together with the gross examination, support the pathologic diagnosis. GROSS DESCRIPTION: The specimen, labeled and designated "[place], bilateral fallopian tubes," is received in formalin and consists of one fimbriated segment (4.5 cm in length x 0.9 cm in diameter) and two non-fimbriated segments of fallopian tube (1.2 and 1.5 cm in length x 1.0 cm in diameter). The non-fimbriated segments are inked blue and black. The segments are sectioned to reveal garces-pink, hemorrhagic cut surfaces. The fimbriated segment has an attached paratubal cyst that measures 0.6 cm in greatest dimension. Assistant Signal Maintainer sections are submitted in cassettes (A1-A2). AC (under the direct supervision of a pathologist) The Gross Description was prepared using a voice recognition system. The report was reviewed for accuracy; however, sound-alike word errors, addition and/or deletions may occur. If there is any question about this report, please contact Client Services. PERFORMING LABORATORY: The technical component was performed by [facility], [address] [place] [id number] (CLIA# [id number]). Professional interpretation was performed by [facility], [address] [place] [id number] (CLIA#: [id number]). Diagnostician: Efrain Mesa MD PATIENT NAME: FRANCESCA WEST PATHOLOGY DATE OF : [birth year] REPORT #: [id number] PHYSICIAN: MARYJANE PATHOLOGY PCP: NURIS GREEN MD REPORT IS CONFIDENTIAL AND NOT TO BE RELEASED WITHOUT AUTHORIZATION [address] [place], [place] [address] Signed Pathologist Electronically Signed 01/27/2022 Copies: ~ PATIENT NAME: FRANCESCA WEST PATHOLOGY DATE OF : [birth year] REPORT #: [id number] PHYSICIAN: MARYJANE PATHOLOGY PCP: NURIS GREEN MD REPORT IS CONFIDENTIAL AND NOT TO BE RELEASED WITHOUT AUTHORIZATION
== END 2022-01-25 16:45 | disposition home or self-care (01) | DRG 784 ==
LOC: FBCO 15:46 → FBC 15:58
PROVIDERS: ADMIT Obstetrics & Gynecology; ATTEND Obstetrics & Gynecology
PROC: 0UB60ZZ Excision of Left Fallopian Tube, Open Approach (ICD-10-PCS; 2022-01-23)
PROC: 0UT50ZZ Resection of Right Fallopian Tube, Open Approach (ICD-10-PCS; 2022-01-23)
PROC: 10D00Z1 Extraction of Products of Conception, Low, Open Approach (ICD-10-PCS; principal; 2022-01-23 17:30)
DX: O42.02 Full-term premature rupture of membranes, onset of labor within 24 hours of rupture (principal); O72.1 Other immediate postpartum hemorrhage; O34.211 Maternal care for low transverse scar from previous cesarean delivery; Z20.822 Contact with and (suspected) exposure to COVID-19; Z3A.37 37 weeks gestation of pregnancy; Z37.0 Single live birth; E66.01 Morbid (severe) obesity due to excess calories; O99.214 Obesity complicating childbirth; O24.429 Gestational diabetes mellitus in childbirth, unspecified control; Z30.2 Encounter for sterilization; Z88.5 Allergy status to narcotic agent; O99.334 Smoking (tobacco) complicating childbirth; F17.210 Nicotine dependence, cigarettes, uncomplicated
CPT/HCPCS: 01961; 36415; 80053; 83036; 85025; 85027; 85060; 86850; 86900; 86901; 88302; A9270; C9803; J0456; J0690; J1100; J1644; J1885; J2001; J2250; J2274; J2300; J2370; J2405; J2590; J3010; J7040; J7121; U0003

== ENCOUNTER 2022-02-22 06:49 | Day surgery (SDC) | payer OTHER ==
[~2022-02-22] VITALS: Ht 172.7 cm; Wt 161.9 kg
--- NOTE | 2022-02-22 10:11 | NUR ---
02/22/22 1011 Jessica Conner 1003-PATIENT ARRIVED TO PACU ON 6L MASK NONAROUSABLE ORAL AIRWAY IN PLACE RR EVEN. DAKINS SOAKED KERLIX TO RIGHT BREAST INTACT. BP 72/44 IVF INFUSING AND OPENED. HOB DECREASED 1006-BP INCREASED TO 75/46 HR 75. NO NEW ORDERS RECEIVED. IVF INFUSING.
--- NOTE | 2022-02-22 11:21 | NUR ---
1110: PT RETURNS TO UNIT VIA STRETCHER FROM PACU. AWAKE AND ALERT ON ARRIVAL. VSS, RESP EVEN AND UNLABORED. REPORTS PAIN BUT IS UNABLE TO RATE PAIN AT THIS TIME. RELAXED EXTREMITIES AND FACE, HOLDS CONVERSTATION WITH MOTHER AND THIS RN. ENCD PT TO EAT CRACKERS PRIOR TO PAIN RX ADMIN, PT VOICES UNDERSTANDING AT THIS TIME. PAIN MANAGEMENT DISCUSSED AND PT AGREEABLE. PACKING INTACT AND NO VISIBLE DRAINAGE FROM INCISION AT THIS TIME. PT PROVIDED SUPPLIES TO PACK WOUND AFTER DC. DENIES NAUSEA. SCDS IN PLACE. POC DISCUSSED AND PT AGREEABLE. NO NEEDS VOICED, CALL LIGHT WITHIN REACH
--- NOTE | 2022-02-22 11:31 | NUR ---
1130: RAHUL PO INTAKE WELL, PAIN RX ADMINISTERED ORDERED. PT REPORTING PAIN 07/29. NO FURTHER NEEDS. CALL LIGHT WITHIN REACH
[2022-02-22] MEDS ORDERED: BACTRIM DS TAB1 EACH PO (11:37)
[2022-02-22] MEDS ORDERED: OXYCODONE HCL5 MG PO (11:38)
--- NOTE | 2022-02-22 11:58 | NUR ---
IV INFUSED BLOOD BACKING INTO IV LINE. FLUSHED AND JUST SALINE LOCK.
--- NOTE | 2022-02-22 12:30 | NUR ---
1045: PT TRIALLED OFF OF OXYGEN, MAINTAINS O2 SAT 98% ON RA. COMFORTABLE WITHOUT NEEDS 1100: PT SITS UP IN STRETCHER AND WATCHES TV. VSS, RESP EVEN AND UNLABORED. DENIES NAUSEA AND REPORTS RAHUL PAIN LEVEL, 3/10. DANGLES AT THE BEDSIDE, RAHUL WELL. DENIES DIZZINESS AND PAIN. SL REMOVED WITH CATH TIP INTACT AND PRESSURE APPLIED TO SITE. PT DRESSES SELF INDEPENDENTLY FOR DC. DC INSTRUCTIONS PROVIDED AND DISCUSSED ORDERED. PT VOICES UNDERSTANDING AND DENIES QUESTIONS AND CONCERNS AT THIS TIME 1125: PT WHEELED OFF OF UNIT IN WC BY THIS RN. TRANSFERS TO VEHICLE INDEPENDENTLY AND APPROPRIATELY. NO PHYSICAL S/S OF DISTRESS AT THIS TIME
--- NOTE | 2022-02-23 07:21 | OR ---
[facility] [address] [place], [place] [address] Signed DATE OF OPERATION: 02/22/2022 SURGEON: Jj Little MD PREOPERATIVE DIAGNOSIS: Recurrent right breast abscess ( 3 cm). POSTOPERATIVE DIAGNOSIS: Recurrent right breast abscess ( 3 cm). PROCEDURE: Incision and drainage of right breast abscess. ESTIMATED BLOOD LOSS: None. INDICATIONS: Wilma is a 31-year-old female with a body mass index of 54. She has had trouble now with a recurring right breast abscess for several years. Dr. Khan helped her twice in the past. He removed most of the tissue underneath the nipple areolar complex and it still recurred. I have already drained her twice as well. We had instructed her previously on packing the wound, particularly with the Dakin's solution for at least four days to sterilize the cavity. For some reason, she and her mom and I able to do that previously. She told me today she thought that incision in the skin was too small and the solution seemed to burn her tissue. She understands the need to sterilize that cavity with the Dakin's solution. The antibiotics will not do a good job of sterilizing the cavity itself. If she allow this to heal from the bottom up, it should do just fine. She just had her 4th baby January 23, 2022. She underwent her without difficulties. She does not breastfeed the baby. However with the milk production, she did develop a recurrent abscess now in the same area of the right breast. She called her abseiling instructor over the weekend and was started on Keflex. She has used Keflex in the past with good results. For some reason, it seems to bothering her stomach on this occasion. She wanted to switch over to Bactrim DS. When she called, we had her come the office the very next morning, so we could see her. She clearly has recurrent abscess. She had been sent to the radiology department by her primary care provider for an ultrasound. There is a cavity about 3 cm in diameter. The indurated area is probably 6, maybe 8 cm in diameter. I explained to Wilma and her mother we would excise the skin from the 3 to 5 o'clock position as we did before on the edge of the areola. We will leave this open so that once again she can pack this and allow it to heal in from the bottom up. We are going to go ahead and accommodate her with the Electronically Signed By: JJ LITTLE MD 02/23/22 0721 PATIENT NAME: WILMA WEST OPERATIVE REPORT DATE OF : [birth year] REPORT #: [id number] PHYSICIAN: JJ LITTLE MD PCP: NURIS GREEN MD REPORT IS CONFIDENTIAL AND NOT TO BE RELEASED WITHOUT AUTHORIZATION [address] [address] Signed Bactrim DS and we will provide her with some oxycodone as well, so that she can continue the packing. She understands this is a day surgery. She understands there is risk including, but not limited to bleeding, infection, scarring, change in contour of the skin as well as recurrent abscesses in the same or other locations. She has expressed understanding and would like to proceed. PROCEDURE NOTE: I met with Wilma and her mother with our nurse in our preop area. We all could easily identify the area of the right breast and we marked that appropriately. I had reviewed all these instructions with Wilma and her mom once again. After this, she was taken to the operating room and she was placed under general LMA anesthesia. She was given preoperative Ancef along with subcutaneous heparin. SCDs were utilized. She had been prepped and draped in the usual sterile fashion. We used our 15 blade knife to remove the thin skin from the 3 to 5 o'clock position on the edge of the areola of the right breast. We carried this down through the tissues with the help of cautery and entered the abscess cavity. She had copious amounts of pus that we evacuated and cultured. The wound was irrigated and suctioned out until clear. Indeed, it is no more than 3 cm in diameter. It is not particularly deep and would not be particularly difficult to pack with gauze. We injected local anesthetic in the abscess cavity and surrounding tissues. We then used 4 inch Kerlix gauze roll soaked in full strength Dakin's solution and easily packed the wound without difficulty. It was cut to length and then covered with dry gauze and . She was then transferred over to her hospital bed weaned from anesthesia, extubated in the OR, and taken to the recovery room in stable condition. Jj Little MD ALB/MODL /[id number] cc: MD Kat Yoon MD Andrew L Bower, MD Electronically Signed By: JJ LITTLE MD 02/23/22 0721 PATIENT NAME: WILMA WEST OPERATIVE REPORT DATE OF : [birth year] REPORT #: [id number] PHYSICIAN: JJ LITTLE MD PCP: NURIS GREEN MD REPORT IS CONFIDENTIAL AND NOT TO BE RELEASED WITHOUT AUTHORIZATION [address] [address] Signed Copies: KAT LUNDBERG MD, ANDREW L MD ~ Electronically Signed By: JJ ILTTLE MD 02/23/22 0721 PATIENT NAME: WILMA WEST OPERATIVE REPORT DATE OF : [birth year] REPORT #: [id number] PHYSICIAN: JJ LITTLE MD PCP: NURIS GREEN MD REPORT IS CONFIDENTIAL AND NOT TO BE RELEASED WITHOUT AUTHORIZATION
== END 2022-02-22 12:25 | disposition home or self-care (01) ==
LOC: DS 06:49
PROVIDERS: ATTEND Colon & Rectal Surgery
PROC: 0H9T30Z Drainage of Right Breast with Drainage Device, Percutaneous Approach (ICD-10-PCS; principal; 2022-02-22 08:45)
DX: N61.1 Abscess of the breast and nipple (principal); E66.01 Morbid (severe) obesity due to excess calories; F17.210 Nicotine dependence, cigarettes, uncomplicated; Z88.5 Allergy status to narcotic agent; Z88.8 Allergy status to other drugs, medicaments and biological substances; Z68.43 Body mass index [BMI] 50.0-59.9, adult
CPT/HCPCS: 36415; 80048; 84703; 85025; 93005; 93010; J0131; J0690; J1100; J1644; J1885; J2001; J2250; J2405; J2704; J7121

== ENCOUNTER 2022-06-30 09:30 | Day surgery (SDC) | payer OTHER ==
[2022-06-26 13:21] VITALS: BP 130/79
[~2022-06-30] VITALS: Ht 172.7 cm; Wt 177.3 kg
--- NOTE | ~2022-06-30 | OR ---
[facility] [address] [place], [place] [address] Draft DATE OF OPERATION: 06/30/2022 SURGEON: Jj Little MD PREOPERATIVE DIAGNOSIS: Recurring right subareolar breast abscess. POSTOPERATIVE DIAGNOSIS: Recurring right subareolar breast abscess. PROCEDURE: Re-excision of right breast abscess. ESTIMATED BLOOD LOSS: None. FINDINGS: Wilma indeed had a small pocket by the nipple areolar complex as the source of her recurring infection. From what we can tell, it has been completely excised. INDICATIONS: Wilma is a 32-year-old obese female, who just had her 4th child about six months ago. She has had trouble with a recurring right breast abscess behind her nipple areolar complex. She has been through 6 or 7 surgeries at this point. She had all the tissue behind the nipple areolar complex removed at one point. However, she has been noncompliant with dressing changes with respect to healing in by secondary intention. She had been doing fine until she got with the last child. That seemed to exacerbate the issue. About a week before she came to the office, she felt the pressure buildup and it broke through the incision on the edge of the areola. She had some Bactrim leftover at home, so she took that and it seemed to help settle it down. She wanted to come in the office and had me look at it. Once again, I met with Wilma and our manager medical affairs in the room, we could see the previous scar. We did not see an obvious infection while in the office. She has a little bit of scar tissue from her surgeries but otherwise, it seemed to be healthy. After some discussion, we felt this might be the opportunity to approach the area when it is not infected and see if we can find the core of this infection. She has been through the surgery many times. We are going to re-excise the scar some additional tissue as we worked our way down around this area. She knows that this would probably be our last effort in that regard. In the future, she would probably have to have a central partial mastectomy just to remove the nipple areolar complex and all the tissue underneath. She understands there is risk to PATIENT NAME: WILMA WEST OPERATIVE REPORT DATE OF : [birth year] REPORT #: [id number] PHYSICIAN: JJ LITTLE MD PCP: NURIS GREEN MD REPORT IS CONFIDENTIAL AND NOT TO BE RELEASED WITHOUT AUTHORIZATION [facility] [address] [place], [place] [address] Draft the surgery including, but not limited to bleeding, infection, scarring, change in contour of the skin as well as recurrent infections as before. She understands the expected intraop and postop course. She expressed understanding and wished to proceed. DESCRIPTION OF PROCEDURE: I met with Wilma and her mom as well as with our nurse. We all identified the right breast quite readily along with a previous surgical incision. We marked that breast appropriately. After this, she was taken to the operating room and placed in the supine position under general LMA anesthesia. She was given preoperative antibiotics along with subcutaneous heparin. SCDs were utilized. She was then prepped and draped in the usual sterile fashion. We used a 15 blade knife after injecting local anesthetic to develop the circumareolar incision containing the previous skin. We went down around this very carefully and slowly with our cautery. It tracked over just behind the nipple areolar complex where we found a small pocket that was the source of her infection. We went around that area into healthy tissue. We can tell that the ducts through the nipple were still open as we pressed with our finger. Once the entire specimen was removed, the wound was infiltrated with local anesthetic. The wound was irrigated and suctioned out until clear. We placed a 4-0 Monocryl suture underneath the nipple to bring the tissue together and push the nipple up. We closed that wound in layers with interrupted 3-0 Monocryl sutures. This closed all the space and allowed the nipple areolar complex to lie over some healthy tissue. The dermis was reapproximated in the same way. The skin edges were reapproximated with a running 5-0 fast absorbing plain gut suture. Dry gauze and tape were then applied. Wilma was awakened from her anesthesia, extubated in the OR, and taken to recovery room in stable condition. Jj Little MD ALB/MODL /[id number] cc: MD Jj Yoon MD Copies: JJ LITTLE MD PATIENT NAME: WILMA WEST OPERATIVE REPORT DATE OF : [birth year] REPORT #: [id number] PHYSICIAN: JJ LITTLE MD PCP: NURIS GREEN MD REPORT IS CONFIDENTIAL AND NOT TO BE RELEASED WITHOUT AUTHORIZATION [address] [place], [place] [address] Draft ~ PATIENT NAME: WILMA WEST OPERATIVE REPORT DATE OF : [birth year] REPORT #: [id number] PHYSICIAN: JJ LITTLE MD PCP: NURIS GREEN MD REPORT IS CONFIDENTIAL AND NOT TO BE RELEASED WITHOUT AUTHORIZATION
[~2022-06-30 09:30] MED LIST changes: +OXYCODONE HCL5 MG PO
[2022-06-30 09:47] VITALS: BP 160/92
--- NOTE | 2022-06-30 12:02 | NUR ---
06/30/22 1202 Sheets,Alicia 1148 PT O2 SAT 89% ON ARRIVAL, O2 INCREASED TO 10L AND HOB INCREASED. PT REACTIVE TO TACTILE STIMULI AND IS ENCOURAGED TO DEEP BREATHE, PT ABLE TO FOLLOW COMMANDS. 1151 O2 SAT INCREASED TO MID 90S WITH PT ABLE TO COUGH OFF AND ON. UPPER LUNGS CLEAR WITH COUGHING. PT SITTING IN HIGH FOWLERS AND ICE PLACED ON SURGICAL SITE. PT GRIMACING IN PAIN BUT UNABLE TO RATE AT THIS TIME.
[2022-06-30 12:44] VITALS: BP 99/84
--- NOTE | 2022-06-30 13:06 | NUR ---
LE 1245 PATIENT BACK FROM PACU. REPORT FROM BRIEN YEAGER. PATIENT IS ALERT AND ORIENTED. BREATHING EQUAL AND UNLABORED. PATIENT COMPLAINS OF A 6/10 PAIN. PATIENT STATES "I WOULD LIKE TO GO HOME I WILL BE IN PAIN NO MATTER WHAT." WATER AND CRACKERS GIVEN AT THIS TIME. PATIENT DENIES BEING NAUSEATED. PATIENT SURGICAL DRESSING CLEAN, DRY AND INTACT. IVF INFUSING. SCD'S ON. ICE APPLIED AT SURGICAL SITE. CALL LIGHT WITHIN REACH NO FUTHER NEEDS. NO QUESTIONS AT THIS TIME. PATIENT MOTHER AND BABY IN ROOM AT THIS TIME.
--- NOTE | 2022-06-30 14:46 | NUR ---
LE 1315 PATIENT UP TO THE RESTROOM PATIENT ABLE TO VOID CLEAR AND YELLOW URINE. PATIENT AMBULATED TO THE ROOM AND TOLERATED IT WELL. CALL LIGHT WITHIN REACH NO FUTHER NEEDS NO QUESTIONS AT THIS TIME.
--- NOTE | 2022-06-30 14:47 | NUR ---
LE 1257 PATIENT GIVEN PRN PAIN MEDICINE. PATIENT ABLE TO TOLERATE FOOD AND DRINKING WATER. CALL LIGHT WITHIN REACH NO FUTHER NEEDS.
--- NOTE | 2022-06-30 14:48 | NUR ---
LE 1335 PATIENT HAS MET DISCHARGE CRITERIA. PATIENT DRESSED SELF AND TOLERATED IT WELL. PATIENT IV D/C'D WNL. PATIENT GIVEN DISCHARGE INSTRUCTIONS NO QUESTIONS AT THIS TIME. PATIENT STATES "THIS IS MY 7TH SURGERY I ALREADY KNOW." PATIENT REFUSED WHEELCHAIR RIDE OUT OF HOSPITAL. THIS RN WALKED PATIENT OUT TO PRIVATE AUTO WHERE MOTHER PICKED HER UP WITH BABY. MOTHER GIVEN PERSCRIPTION PRIOR TO DISCHARGE. NO FUTHER NEEDS.
--- NOTE | 2022-07-04 16:18 | PATH ---
[facility] [address] [facility] [place] [address] Signed SPECIMEN(S): A RIGHT BREAST SPECIMEN SOURCE: A. RIGHT BREAST CLINICAL HISTORY: Excision of recurrent right breast abscess. FINAL PATHOLOGIC DIAGNOSIS: Right breast, excisional biopsy: - Benign skin and breast tissue with central abscess and granulation tissue. - Negative for atypical features or evidence of malignancy. COMMENT: As part of [facility] Quality Improvement Program, this case was reviewed by another member of our pathology staff. JVR:ROMÁN:jessica:C2NR MICROSCOPIC EXAMINATION: Histologic sections of all submitted blocks are examined by light microscopy. These findings, together with the gross examination, support the pathologic diagnosis. Immunostains are performed with appropriate controls on block (A4) and show the following: - CK AE1/3: Negative for occult carcinoma. - CD68: Positive in histiocytes. JVR:[facility] GROSS DESCRIPTION: The specimen, labeled and designated "Payam Ting," and designated on the requisition "right breast tissue," is received in formalin and consists of a fragmented portion of yellow to pink-garces unoriented fibroadipose tissue (7 g, 4.5 x 3.2 x 2.0 cm) with attached ellipse of garces-pink skin (0.9 cm in length x 0.8 cm in width). The resection margin is inked blue, and the specimen is serially sectioned to reveal a yellow-garces to garces-pink fibrous cut surface (more than 50% fibrous). A discrete abscess or lesion is not grossly identified. The specimen is submitted entirely in cassettes (A1-A6). Cold ischemic time: Cannot be calculated The tissue was fixed in formalin for at least six and less than 24 hours AC (under the direct supervision of a pathologist) PATIENT NAME: FRANCESCA WEST PATHOLOGY DATE OF : [birth year] REPORT #: [id number] PHYSICIAN: MARYJANE PATHOLOGY PCP: NURIS GREEN MD REPORT IS CONFIDENTIAL AND NOT TO BE RELEASED WITHOUT AUTHORIZATION [facility] [address] [place], [place] [address] Signed The Gross Description was prepared using a voice recognition system. The report was reviewed for accuracy; however, sound-alike word errors, addition and/or deletions may occur. If there is any question about this report, please contact Client Services. ADDITIONAL NOTES: Immunohistochemical and/or in situ hybridization studies were performed on this case with the appropriate positive controls that react as expected. This test was developed and its performance characteristics determined by [facility]. It has not been cleared or approved by the U.S. Food and Drug Administration. The FDA has determined that such clearance or approval is not necessary. This test is used for clinical purposes. It should not be regarded as investigational or for research. [facility] is certified under the Clinical Laboratory Improvement Amendments of 1988 (CLIA) as qualified to perform high complexity clinical laboratory testing. This assay has not been validated for specimens that have been decalcified. PERFORMING LABORATORY: The technical component was performed by [facility], [address] [place] [id number] (CLIA# [id number]). Professional interpretation was performed by [facility], [address] [place] [id number] (CLIA#: [id number]). Diagnostician: Efrain Mesa MD Pathologist Electronically Signed 07/04/2022 Copies: ~ PATIENT NAME: FRANCESCA WEST PATHOLOGY DATE OF : [birth year] REPORT #: [id number] PHYSICIAN: MARYJANE BOGGS PCP: NURIS GREEN MD REPORT IS CONFIDENTIAL AND NOT TO BE RELEASED WITHOUT AUTHORIZATION
== END 2022-06-30 13:35 | disposition home or self-care (01) ==
LOC: DS 09:30
PROVIDERS: ATTEND Colon & Rectal Surgery
PROC: 0HBT0ZZ Excision of Right Breast, Open Approach (ICD-10-PCS; principal; 2022-06-30 10:30)
DX: N61.1 Abscess of the breast and nipple (principal); E66.01 Morbid (severe) obesity due to excess calories; Z68.43 Body mass index [BMI] 50.0-59.9, adult
CPT/HCPCS: J0131; J0690; J1100; J1644; J2001; J2405; J2704; J3010; J7121

== ENCOUNTER 2024-07-25 08:22 | Day surgery (SDC) | payer OTHER ==
[2024-07-21 16:12] VITALS: BP 132/77
[~2024-07-25] VITALS: Ht 172.7 cm; Wt 172.7 kg
[~2024-07-25 08:22] MED LIST changes: +ACETAMINOPHEN500 MG PO; +CEFAZOLIN SODIUM 2 GM/20 ML SYR IV SCH; +CEFAZOLIN SODIUM 3 GM/30 ML SYR IV SCH; +HEParin SOD (PORCINE) 5,000 UNIT/ML SDV SUB-Q SCH; +IBLOOD GLUCOSE TEST STRIP 1 EA TEST VI PRN; +LACTATED RINGER'S 1,000 ML IV SCH; +LIDOCAINE HCL 1% 5 ML SDV INJ ONE; +METRONIDAZ500 MG/100 PO; +NICODERM CQ1 EAC2 TD
[2024-07-25 08:37] VITALS: BP 128/68
--- NOTE | 2024-07-25 08:54 | NUR ---
FISHINGN CALL WHEN READY.
[2024-07-25] MEDS ORDERED: fentaNYL citrate 100 MCG/2 ML VIAL ONE ×2 (10:32→11:26)
[2024-07-25] MEDS ORDERED: LIDOCAINE HCL 2% 5 ML SDV ONE (10:32)
[2024-07-25] MEDS ORDERED: propofoL 200 MG/20 ML VIAL ONE (10:32)
[2024-07-25] MEDS ORDERED: MIDAZOLAM HCL 2 MG/2 ML VIAL ONE (10:32)
--- NOTE | 2024-07-25 10:52 | NUR ---
DR Slaughter AND WORK COUNSELOR IN TO TALK WITH PT.
[2024-07-25] MEDS ORDERED: droPERidol 5 MG/2 ML VIAL IV PRN (11:00)
[2024-07-25] MEDS ORDERED: IBLOOD GLUCOSE TEST STRIP 1 EA TEST VI PRN (11:00)
[2024-07-25] MEDS ORDERED: ondansetron HCL 4 MG/2 ML VIAL IV PRN (11:00)
[2024-07-25] MEDS ORDERED: fentaNYL citrate 50 MCG/ML SDV IV PRN (11:00)
[2024-07-25] MEDS ORDERED: NALOXONE HCL 0.4 MG SYR IV PRN (11:00)
[2024-07-25] MEDS ORDERED: KETOROLAC TROMETHAMINE 30 MG/ML VIAL ONE (11:21)
[2024-07-25] MEDS ORDERED: ondansetron HCL 4 MG/2 ML VIAL ONE (11:21)
[2024-07-25] MEDS ORDERED: ACETAMINOPHEN 1,000 MG/100 ML VIAL ONE (11:22)
[2024-07-25] MEDS ORDERED: ePHEDrine sulfate 50 MG/ML AMP ONE (11:34)
--- NOTE | 2024-07-25 12:13 | NUR ---
07/25/24 1213 Carlee Moran 1202-PT ARRIVES TO PACU VIA STRETCHER, RESTING SEMI FOWLERS, PT DROWSY BUT ABLE TO NOD HEAD YES OR NO, DENIES PAIN OR NAUSEA, FALLS BACK TO SLEEP EASILY, VSS ON 6L VIA MASK, RR EVEN AND UNLABORED.
[2024-07-25] MEDS ORDERED: ENDOCET 5-3251 EACH PO (12:14)
[2024-07-25 12:43] VITALS: BP 132/66
--- NOTE | 2024-07-25 12:47 | NUR ---
NO ONE HERE WAITING FOR PT.
[2024-07-25] MEDS ORDERED: OXYCODONE/APAP 5/325 TAB PO ONE (13:15)
--- NOTE | 2024-07-25 13:17 | NUR ---
REQUEST PAIN MED AND GIVEN HAS EATEN CRACKERS.
[2024-07-25 13:24] VITALS: BP 157/78
--- NOTE | 2024-07-25 13:28 | NUR ---
WANTS TO GO HOME STATES IS IN CAR WAITING.
--- NOTE | 2024-07-25 13:29 | NUR ---
HAS AMBULTED IN HALLWAY VOIDS QS. DIDNT WAIT FOR HAT IN TOILET.
--- NOTE | 2024-07-25 13:42 | NUR ---
ANXIOUS TO LEAVE. REVIEWED DC PAPERS WITH PT STATES SHES HAD THESE BEFORE SEVERAL TIMES ENC HER TO REVIEW AT HOME AGAIN. SCRIPT GIVEN TO PT. STATES SHE PROBABLY HAS MORE HEADACHE THAN INCISIONAL PAIN.
[2024-07-25] MEDS ORDERED: SEVOFLURANE 250 ML BTL INH ONE (15:24)
== END 2024-07-25 13:35 | disposition home or self-care (01) ==
LOC: DS 08:22
PROVIDERS: ATTEND Surgery
PROC: 0HBW0ZZ Excision of Right Nipple, Open Approach (ICD-10-PCS; principal; 2024-07-25 09:30)
DX: N61.1 Abscess of the breast and nipple (principal); Z88.5 Allergy status to narcotic agent; E66.9 Obesity, unspecified; Z68.44 Body mass index [BMI] 60.0-69.9, adult
CPT/HCPCS: 00400; 84703; 88304; J0131; J0690; J1644; J1885; J2003; J2250; J2405; J2704; J3010; J7121

== ENCOUNTER 2024-08-21 09:32 | Day surgery (SDC) | payer OTHER ==
[~2024-08-21] VITALS: Ht 172.7 cm; Wt 183.7 kg
[~2024-08-21 09:32] MED LIST changes: -CEFAZOLIN SODIUM 2 GM/20 ML SYR IV SCH; +ENDOCET 5-3251 EACH PO; -HEParin SOD (PORCINE) 5,000 UNIT/ML SDV SUB-Q SCH
[2024-08-21 09:50] VITALS: BP 142/80
[2024-08-21] MEDS ORDERED: DEXAMETHASONE SOD PHOS 4 MG/ML VIAL ONE (10:49)
[2024-08-21] MEDS ORDERED: fentaNYL citrate 100 MCG/2 ML VIAL ONE (10:50)
[2024-08-21] MEDS ORDERED: MIDAZOLAM HCL 2 MG/2 ML VIAL ONE (10:50)
[2024-08-21] MEDS ORDERED: ACETAMINOPHEN 1,000 MG/100 ML VIAL ONE (11:48)
--- NOTE | 2024-08-21 12:21 | NUR ---
08/21/24 1221 Jessica Conner 1206-PATIENT ARRIVED TO PACU ON RA 88% REACTIVE TO VERBAL STIMULI ENCOURAGED EYES CLOSED ENCOURAGED TO TAKE DEEP BREATHES AND COUGH BY GEAR LAPPING MACHINE OPERATOR. PATIENT DEMONSTRATED. 1210-PATIENT HAS EYES CLOSED REACTIVE TO VERBAL STIMULI O2 SAT 89-90% ON RA 2L NC PLACED O2 SAT INCREASED TO 93% RR EVEN. REPORTS "HOLDS MY BREATHE" REPORTING PAIN "9" 1215-DR. VIERA AT BEDSIDE TALKING TO PATIENT. PATIENT HAS EYES CLOSED ANSWERING QUESTIONS.
[2024-08-21] MEDS ORDERED: HYDROCODONE/ACETA 5/325 TAB PO ONE (12:30)
[2024-08-21] MEDS ORDERED: NALOXONE HCL 0.4 MG SYR IV PRN (12:45)
[2024-08-21] MEDS ORDERED: fentaNYL citrate 50 MCG/ML SDV IV PRN (12:45)
[2024-08-21] MEDS ORDERED: HYDROCODON-ACE1 EA10 PO (12:53)
[2024-08-21] MEDS ORDERED: BACTRIM DS TAB1 EACH PO (12:54)
[2024-08-21 13:05] VITALS: BP 118/68
== END 2024-08-21 13:10 | disposition home or self-care (01) ==
LOC: OPS 09:32 → DS 09:33 → OPS 10:30 → DS 11:30 → OPS 13:10
PROVIDERS: ATTEND Surgery
PROC: 0H9T0ZZ Drainage of Right Breast, Open Approach (ICD-10-PCS; principal; 2024-08-21 10:30)
DX: N61.1 Abscess of the breast and nipple (principal); F17.210 Nicotine dependence, cigarettes, uncomplicated; E66.01 Morbid (severe) obesity due to excess calories; Z68.44 Body mass index [BMI] 60.0-69.9, adult; Z88.5 Allergy status to narcotic agent; Z88.8 Allergy status to other drugs, medicaments and biological substances; Z91.048 Other nonmedicinal substance allergy status; Z80.3 Family history of malignant neoplasm of breast; Z90.11 Acquired absence of right breast and nipple
CPT/HCPCS: 00400; 84703; 87070; 87075; 87076; 87205; J0131; J0690; J1100; J2250; J2405; J2704; J3010; J7121

== ENCOUNTER 2024-11-28 12:32 | Day surgery (SDC) | payer OTHER ==
[~2024-11-28] VITALS: Ht 172.7 cm; Wt 181.8 kg
[~2024-11-28 12:32] MED LIST changes: +CEFAZOLIN SODIUM 3 GM in SODIUM CHLORIDE 0.9% 100 ML IV SCH; -CEFAZOLIN SODIUM 3 GM/30 ML SYR IV SCH
[2024-11-28 12:48] VITALS: BP 131/70
[2024-11-28] MEDS ORDERED: NEXPLANON68 MG SUB-Q (12:51)
[2024-11-28] MEDS ORDERED: SEVOFLURANE 250 ML BTL INH ONE (14:45)
[2024-11-28] MEDS ORDERED: NALOXONE HCL 0.4 MG SYR IV PRN (15:30)
[2024-11-28] MEDS ORDERED: IBLOOD GLUCOSE TEST STRIP 1 EA TEST VI PRN (15:30)
[2024-11-28] MEDS ORDERED: fentaNYL citrate 50 MCG/ML SDV IV PRN (15:30)
[2024-11-28] MEDS ORDERED: HYDROmorphone HCL 1 MG/ML SYR IV PRN (15:30)
[2024-11-28] MEDS ORDERED: DEXAMETHASONE SOD PHOS 4 MG/ML VIAL ONE (15:31)
[2024-11-28] MEDS ORDERED: KETOROLAC TROMETHAMINE 30 MG/ML VIAL ONE (15:31)
[2024-11-28] MEDS ORDERED: fentaNYL citrate 100 MCG/2 ML VIAL ONE ×2 (15:31)
[2024-11-28] MEDS ORDERED: SUGAMMADEX SODIUM 200 MG/2 ML ML ONE (15:31)
[2024-11-28] MEDS ORDERED: ACETAMINOPHEN 1,000 MG/100 ML VIAL ONE (15:31)
[2024-11-28] MEDS ORDERED: ALBUTEROL/IPRATROPIUM 3 ML NEB ONE (15:46)
[2024-11-28] MEDS ORDERED: HYDROCODONE BIT/ACETAMINOPHEN 5/325 MG 1 TAB HOME.PACK PO ONE (16:45)
--- NOTE | 2024-11-28 16:45 | NUR ---
PT RETURNED TO DS ROOM AND PT REPORTS TOLERABLE PAIN. PLAN OF CARE DISCUSSED. PT ON 2L VIA NC, O2 SAT LOW 90S. O2 REMOVED. PT SIPPING WATER AND EATING GRAM CRACKERS.
[2024-11-28 16:46] VITALS: BP 117/62
--- NOTE | 2024-11-28 16:59 | NUR ---
PAIN MEDICAITON GIVEN PER EMAR. PT ASKED IF SHE COULD GET DRESSED. PT UP AND OUT OF BED, STEADY ON HER FEET. LARGE VOID NOTED IN BED. EDUCAITON GIVEN TO PT. PT DRESSED HERSELF.
[2024-11-28] MEDS ORDERED: HYDROCODONE/ACETA 5/325 TAB PO ONE (17:00)
[2024-11-28 17:37] VITALS: BP 131/72
--- NOTE | 2024-11-28 17:47 | NUR ---
1745- VITAL SIGNS OBTAINED. VSS. DISCHARGE INFORMATION GONE OVER. ALL QUESTIONS AND CONCERNS ANSWERED. PT RIDE IS 10 MINUTES OUT FROM HOSPITAL AT THIS TIME. PT IS READY TO DC WHEN RIDE ARRIVES. PT GAIT IS EVEN AND UNLABORED. PT WILL BE WHEELED OUT IN HOSPITAL WHEELCHAIR.
--- NOTE | 2024-11-28 18:03 | NUR ---
11/28/24 1803 Cayden,Alicia 1541 PT ARRIVED TO PACU ON 6L VIA MASK, O2 SAT 80%. DEEP BREATHING ENCOURAGED AND PT ABLE TO FOLLOW DIRECTIONS. HOB INCREASED AND O2 INCREASED TO 15L. PT GRIMACING AND REPORTS PAIN IN RIGHT BREAST. 1549 BREATHING TREATMENT STARTED PER STAVE SAW OPERATOR, O2 SAT INCREASED TO HIGH 80S. PT REPORTS "I HOLD MY BREATH WHEN I AM IN PAIN." AND PT REPORTS THIS HAPPENED WITH PREVIOUS SURGERIES. 1558 PAIN MEDICAITON GIVEN PER EMAR, PER THIS RN AND STAVE SAW OPERATOR. PT COUGHING AND DEEP BREATHING OFF AND ON. 1608 PT REPORTS PAIN IS "A LITTLE BETTER." O2 REMOVED, PT PULLING OFF O2. PT EDUCATION GIVEN. O2 SAT REMAIN 87-92%. 1628 MD AT BEDSIDE TALKING TO PT AND O2 SAT DECREASED TO 85%, 2L NC PLACED, INCENTIVE SPIROMETER GIVEN AND PT USED WITH NO CONCERNS. 1645 PT RETURNED TO DS AND REPORT GIVEN TO THIS RN. CALL LIGHT WITHIN REACH.
--- NOTE | 2024-12-03 11:13 | PATH ---
[facility] [address] [facility] [address] [place], [place] [address] Signed SPECIMEN(S): A RIGHT BREAST, PRODUCTS OF DEBRIDEMENT SPECIMEN SOURCE: A. RIGHT BREAST, PRODUCTS OF DEBRIDEMENT CLINICAL HISTORY: Recurrent right breast abscess FINAL PATHOLOGIC DIAGNOSIS: Products of debridement, right breast per requisition: - Benign skin and fibrovascular and adipose tissue with chronic and focal acute inflammation consistent with clinical recurrent breast abscess. [facility] MICROSCOPIC EXAMINATION: Histologic sections of all submitted blocks are examined by light microscopy. These findings, together with the gross examination, support the pathologic diagnosis. GROSS DESCRIPTION: The specimen, labeled and designated "[place], products of debridement, right breast per requisition," is received in formalin and consists of a 2.5 x 2.6 x 0.6 cm aggregate of garces-pink fibrous tissue with scant amount of attached yellow lobulated adipose. There is scant amount of hemorrhage but no significant necrosis. Wash Crew Person sections are submitted in cassette A1. AA (under the direct supervision of a pathologist) The Gross Description was prepared using a voice recognition system. The report was reviewed for accuracy; however, sound-alike word errors, addition and/or deletions may occur. If there is any question about this report, please contact Client Services. ADDITIONAL NOTES: Immunohistochemical and/or in situ hybridization studies if performed in this case included appropriate positive controls that reacted as expected. This test was developed and its performance characteristics determined by [facility] [facility]. It has not been cleared or approved by the U.S. Food and Drug Administration. The FDA has determined that such clearance or approval is not necessary. This test is used for clinical purposes. It should not be regarded as investigational or for research. [facility] is certified under the PATIENT NAME: FRANCESCA WEST PATHOLOGY DATE OF : [birth year] REPORT #: [id number] PHYSICIAN: MARYJANE PATHOLOGY PCP: NURIS GREEN MD REPORT IS CONFIDENTIAL AND NOT TO BE RELEASED WITHOUT AUTHORIZATION [facility] [address] [facility] [place] [address] Signed Clinical Laboratory Improvement Amendments of 1988 (CLIA) as qualified to perform high complexity clinical laboratory testing. PERFORMING LABORATORY: Technical component was performed by [facility], [address] [place] [id number] (CLIA# [id number]). Professional interpretation was performed by [facility] [place] - [address] [place] [address] (CLIA#: [id number]). Diagnostician: Efrain Mesa MD Pathologist Electronically Signed 12/03/2024 Copies: ~ PATIENT NAME: FRANCESCA WEST PATHOLOGY DATE OF : [birth year] REPORT #: [id number] PHYSICIAN: MARYJANE PATHOLOGY PCP: NURIS GREEN MD REPORT IS CONFIDENTIAL AND NOT TO BE RELEASED WITHOUT AUTHORIZATION
== END 2024-11-28 17:55 | disposition home or self-care (01) ==
LOC: DS 12:32
PROVIDERS: ATTEND Surgery
PROC: 0H9T0ZX Drainage of Right Breast, Open Approach, Diagnostic (ICD-10-PCS; principal; 2024-11-28 14:30)
DX: N61.1 Abscess of the breast and nipple (principal); F17.210 Nicotine dependence, cigarettes, uncomplicated; Z88.5 Allergy status to narcotic agent; Z88.8 Allergy status to other drugs, medicaments and biological substances; Z91.048 Other nonmedicinal substance allergy status; Z90.11 Acquired absence of right breast and nipple
CPT/HCPCS: 00400; 87070; 87075; 87205; A9270; J0131; J0688; J1100; J1171; J1885; J2405; J2704; J3010; J7121

== ENCOUNTER 2025-02-18 09:45 | Day surgery (SDC) | payer OTHER ==
[~2025-02-18] VITALS: Ht 172.7 cm; Wt 177.0 kg
[~2025-02-18 09:45] MED LIST changes: +AMP/SULBACTAM SOD 3 GM in SODIUM CHLORIDE 0.9% 100 ML IV SCH; -CEFAZOLIN SODIUM 3 GM in SODIUM CHLORIDE 0.9% 100 ML IV SCH; +NEXPLANON68 MG SUB-Q
[2025-02-18 10:41] VITALS: BP 125/71
--- NOTE | 2025-02-18 10:53 | NUR ---
LUIS WILL BE MILLSTONE CLEANER.
[2025-02-18] MEDS ORDERED: SEVOFLURANE 250 ML BTL INH ONE (11:01)
[2025-02-18 11:19] LABS: BASOPHILS 0.4 % (0.1-1.2); EOSINOPHILS 1.3 % (0.7-5.8); LYMPHOCYTES 27.1 % (19.3-51.7); MCH 29.7 PG (25.6-32.2); MCHC 33.6 g/dL (32.2-35.5); MCV 88.5 fL (79.4-94.8); MONOCYTES 6.7 % (4.7-12.5); NEUTROPHILS 64.2 % (34.0-71.1); RBC 4.68 M/uL (3.93-5.22)
[2025-02-18 11:37] LABS: ALT (SGPT) 33.0 U/L (14-59); AST (SGOT) 21.0 U/L (15-37); GLOMERULAR FILTRATION RATE,EST 99.0 mL/min (>60); PROTEIN, TOTAL 7.3 g/dL (6.4-8.2); UREA NITROGEN 8.0 mg/dL (7-18)
[2025-02-18] MEDS ORDERED: SUCCINYLCHOLINE IN 0.9% NACL 200 MG/10 ML SYRINGE ONE (12:34)
[2025-02-18] MEDS ORDERED: LIDOCAINE HCL 2% 5 ML SDV ONE (12:34)
[2025-02-18] MEDS ORDERED: fentaNYL citrate 100 MCG/2 ML VIAL ONE ×2 (12:34→13:03)
[2025-02-18] MEDS ORDERED: ROCURONIUM BROMIDE 50 MG/5 ML SYR ONE (12:34)
[2025-02-18] MEDS ORDERED: DEXAMETHASONE SOD PHOS 4 MG/ML VIAL ONE (12:49)
[2025-02-18] MEDS ORDERED: ACETAMINOPHEN 1,000 MG/100 ML VIAL ONE (13:03)
[2025-02-18] MEDS ORDERED: SUGAMMADEX SODIUM 200 MG/2 ML ML ONE (13:03)
[2025-02-18] MEDS ORDERED: MAGNESIUM SULFATE 1 GM/2 ML VIAL ONE (13:03)
[2025-02-18] MEDS ORDERED: HYDROmorphone HCL 1 MG/ML SYR IV PRN (13:15)
[2025-02-18] MEDS ORDERED: NALOXONE HCL 0.4 MG SYR IV PRN (13:15)
[2025-02-18] MEDS ORDERED: fentaNYL citrate 50 MCG/ML SDV IV PRN (13:15)
[2025-02-18] MEDS ORDERED: IBLOOD GLUCOSE TEST STRIP 1 EA TEST VI PRN (13:15)
[2025-02-18] MEDS ORDERED: ALBUTEROL/IPRATROPIUM 3 ML NEB INH ONE (13:30)
[2025-02-18] MEDS ORDERED: ALBUTEROL/IPRATROPIUM 3 ML NEB ONE (13:34)
--- NOTE | 2025-02-18 14:16 | NUR ---
02/18/25 1416 Kenzie Mittal LE 1330: PT ARRIVES TO PACU ON 6L VIA MASK. O2 SAT IS IN THE 80'S. O2 INCREASED TO 14L VIA MASK. PT IS ENCOURAGED TO COUGH AND TAKE DEEP BREATHS. SHE IS ALERT. CONNECTED TO MONITORS. REPORT RECEIVED FROM FOIL CUTTER AND FORMAL WEAR RENTAL CLERK. LE 1332: LUNGS AUSCULTATED, IT WAS REPORTED SHE WAS CLEAR BEFORE INTUBATION. EXPIRATORY WHEEZES ARE HEARD IN THE UPPER LOBES. LE 1335: NEB TREATMENT STARTED. PT CONTINUES TO COUGH AND CLEAR HER AIRWAY. O2 SAT INCREASING INTO THE 90'S. LE 1339: PT IS CRYING, REPORTING 10/10 PAIN. LE 1341: PT GIVEN PAIN MEDS. LE 1339: O2 DECREASED TO 6L VIA MASK. LE 1345: PT IS SWITCHED TO NC AND DECREASED TO 4L. LE 1406; PT IS GIVEN CHAPSTICK REQUESTED.
[2025-02-18 14:38] VITALS: BP 105/59
--- NOTE | 2025-02-18 14:43 | NUR ---
RETURN TO ROOM CALL LIGHT GIVEN. ON PHONE.
[2025-02-18] MEDS ORDERED: OXYCODONE/APAP 5/325 TAB PO PRN (15:00)
--- NOTE | 2025-02-18 15:22 | NUR ---
1500 IS GIVEN AND INSTRUCTED ON USE SAYS SHE DONE THEM BEFORE.
--- NOTE | 2025-02-18 15:23 | NUR ---
1525 TRIAL OFF O2 ROOM AIR SATS 92 TO 94%.
[2025-02-18 15:25] VITALS: BP 120/62
--- NOTE | 2025-02-18 15:49 | NUR ---
DC INSTRUCTIONS EXPLAINED PRINT OUT EDUCATION PAPERS REVIEWED AND STATES SHE UNDERSTANDS ENC TO REREAD AT HOME. ANXIOUS TO GET PRESCRIPTION FILLED PHARMACY CLOSES EARLY TODAY.
== END 2025-02-18 15:40 | disposition home or self-care (01) ==
LOC: DS 09:45
PROVIDERS: ATTEND Surgery
PROC: 0H9U0ZZ Drainage of Left Breast, Open Approach (ICD-10-PCS; 2025-02-18)
PROC: 0HBU0ZZ Excision of Left Breast, Open Approach (ICD-10-PCS; principal; 2025-02-18 11:15)
DX: N61.1 Abscess of the breast and nipple (principal); F17.210 Nicotine dependence, cigarettes, uncomplicated; E66.01 Morbid (severe) obesity due to excess calories; Z68.43 Body mass index [BMI] 50.0-59.9, adult; Z88.5 Allergy status to narcotic agent; Z88.8 Allergy status to other drugs, medicaments and biological substances; Z91.048 Other nonmedicinal substance allergy status
CPT/HCPCS: 00400; 36415; 80053; 84703; 85025; 87070; 87075; 87205; 88304; 88341; 88342; J0131; J0295; J0330; J1100; J1171; J2003; J2405; J2704; J3010; J3475; J3490; J7121